=== PATIENT | male | born 1990 | race Caucasian/White ===

== ENCOUNTER 2016-11-18 00:44 | Emergency (ER) | payer SELFPAY ==
[~2016-11-18] VITALS: Ht 177.8 cm; Wt 86.0 kg
[~2016-11-18 00:44] MED LIST: AMOX-291 PO
[2016-11-18 00:50] VITALS: BP 168/118
== END 2016-11-18 00:57 | disposition left against medical advice (07) ==
LOC: ED 00:51
DX: R22.0 Localized swelling, mass and lump, head (principal); R55 Syncope and collapse; Z53.21 Procedure and treatment not carried out due to patient leaving prior to being seen by health care provider; Y08.89XA Assault by other specified means, initial encounter; Y93.89 Activity, other specified; Y99.8 Other external cause status; Y92.89 Other specified places as the place of occurrence of the external cause

== ENCOUNTER 2018-06-06 20:08 | Emergency (ER) | payer SELFPAY ==
[~2018-06-06] VITALS: Ht 177.8 cm; Wt 75.4 kg
[2018-06-06 20:11] VITALS: BP 155/77
[2018-06-06] MEDS ORDERED: BICILLIN-LA 2,400,000 UNITS/4 ML IM ONE (20:30)
[2018-06-06] MEDS ORDERED: AZITHROMYCIN 250 MG TABLET PO ONE (20:53)
[2018-06-06] MEDS ORDERED: CEFTRIAXONE 250 MG IM ONE (21:00)
[2018-06-06] MEDS ORDERED: CEFTRIAXONE 250 MG ONE (21:11)
[2018-06-06] MEDS ORDERED: AZITHROMYCIN 250 MG TABLET ONE (21:11)
== END 2018-06-06 21:59 | disposition home or self-care (01) ==
LOC: ED 21:50
DX: R36.9 Urethral discharge, unspecified (principal)
CPT/HCPCS: 36415; 86592; 87491; 87591; 96372; 99283; J0561; J0696